=== PATIENT | male | born 1990 | race Caucasian/White ===

== ENCOUNTER 2016-10-05 17:36 | Emergency (ER) | payer SELFPAY | END 2016-10-05 22:30 | disposition home or self-care (01) | LOC: FER 17:36 | DX: S43.102A Unspecified dislocation of left acromioclavicular joint, initial encounter (principal) | CPT/HCPCS: 73030; 99283; J1100 ==

== ENCOUNTER 2016-10-22 15:47 | Emergency (ER) | payer SELFPAY | END 2016-10-22 18:00 | disposition home or self-care (01) | LOC: FER 15:47 | DX: M25.512 Pain in left shoulder (principal); Z88.1 Allergy status to other antibiotic agents | CPT/HCPCS: 99283 ==